=== PATIENT | female | born 1940 | race Caucasian/White ===

== ENCOUNTER 2016-07-16 17:39 | Emergency (ER) | payer OTHER, MEDICARE ==
[~2016-07-16] VITALS: Ht 157.5 cm; Wt 37.2 kg
[~2016-07-16 17:39] MED LIST: ACHYD1T PO; ALBU8.5H4 IH; ALPR0.2550 PO; ASP81TEC PO; ATRV10T PO; CA C1TAB26 PO; CYCL10TA9 PO; DEXL60CA5 PO; ESTR1TAB24 PO; FLUT12AE4 IH; HYDR-3583 PO; LANS15CA PO; LISI10TA PO; LVF500T PO; MELO-198 PO; OMEP-10 PO; OMEP20CA6 PO; OXYB5TAB9 PO; OXYC1TAB87 PO; PRX10T PO
--- OUTSIDE RECORDS SUMMARY | 2016-07-16 17:45 | XMS REPORT ---
Author Author FAVIO PALM Organization [employer] Address Unknown Phone Unavailable Care Team Providers Care Amf Mechanic Name Role Phone FAVIO PALM CP Unavailable Allergies, Adverse Reactions, Alerts Substance Reaction Event Type N.K.D.A. Info Not Available Non Drug Allergy Problems Problem Type Condition Code Onset Dates Condition Status Assessment Vitamin D deficiency E55.9 Active Assessment Pulmonary emphysema, unspecified emphysema type J43.9 Active Assessment Tobacco abuse Z72.0 Active Problem Routine health maintenance Z00.00 Active Problem Weight loss R63.4 Active Problem Vitamin D deficiency E55.9 Active Problem Tobacco abuse counseling Z71.6 Active Assessment Weight loss R63.4 Active Problem Pulmonary emphysema, unspecified emphysema type J43.9 Active Problem Tobacco abuse Z72.0 Active Medications Medication Code System Code Instructions Start Date End Date Status Dosage Cholecalciferol [facility] [id number]226 UNIT Orally once weekly January 22, 2016 1 capsule Zofran [facility] [address]-66 8 MG Orally PRN 1 tablet Estradiol [facility] [address]-09 1 MG Orally Once a day 1 tablet Megace ES [facility] [address]-54 625 MG/5ML Orally Once a day Feb 01, 2016 5 ml Procedures Procedure Coding System Code Date Office Visit, Est Pt., Level 3 CPT-4 36166 Feb 01, 2016 [facility] VISIT ESTABLISHED PATIENT CPT-4 G0467 Feb 01, 2016 Vital Signs Date/Time: Feb 01, 2016 Cardiac Monitoring Heart Rate 70 bpm Weight 70.0 lbs Height 5 ft 2 in in BMI 12.80 Index Blood Pressure Diastolic 66 mmHg Blood Pressure Systolic 96 mmHg Results No Known Results Summary Purpose eClinicalWorks Submission
[2016-07-16] MEDS ORDERED: morphine INJ 10 MG/ML 1ML (SYR OR VIAL) IM STA (18:52)
--- NOTE | 2016-07-16 19:01 | ED Upper Extremity ---
General Chief Complaint: Upper Extremity Stated Complaint: RT ARM PAIN Nursing Triage Note: WAS KNOCKED OVER BY A DOG AND LANDED ON R WRIST. C/O PAIN TO RFA. Nursing Sepsis Screen: No Definite Risk Source: patient Exam Limitations: no limitations History of Present Illness Time seen by provider: 19:01 Initial Comments 76 yo female patient presents to the emergency department complaints of right wrist pain and right forearm pain. Patient states she was knocked over at work by a dog. Reports falling on an outstretched right hand. Patient is right hand dominant. Denies hitting her head or loss of consciousness. Patient states she does take an 81 mg baby aspirin daily. Location Injury Occurred: work Onset: this afternoon Pain/Injury Location: right forearm, right wrist Method of Injury: fell Modifying Factors: Improves With Immobilization, Worse With Movement Allergies and Home Medications Allergies Coded Allergies: No Known Drug Allergies (Unverified , 03/27/10) Home Medications Albuterol Sulfate 8.5 Gm Hfa.aer.ad 2 PUFF IH NEEDED (Reported) FOR LUNGS Alprazolam 0.25 Mg Tab.rapdis 0.5 EACH PO Q8H PRN PRN (Reported) Cyclobenzaprine Hcl 10 Mg Tablet 10 MG PO Q8HR (Reported) Estradiol 1 Mg Tablet 1 MG PO DAILY (Reported) Hydrocodone/Acetaminophen 1 Each Tablet #30 1 EACH PO Q4H PRN PRN PAIN Prescribed by: ZEFERINO CALDERON on 07/16/161951 Omeprazole 20 Mg Capsule.dr 20 MG PO DAILY (Reported) Constitutional: no symptoms reported Respiratory: no symptoms reported Cardiovascular: no symptoms reported Musculoskeletal: see HPINo back pain, joint pain (rt wrist/forearm) joint swelling (rt wrist)No neck pain Skin: change in color (ecchymosis rt wrist) lumps (rt wrist.) Psychiatric/Neurological: Denies Headache, Denies Numbness, Denies Paresthesia , Denies Seizure, Denies Tingling, Denies Weakness All Other Systems Reviewed Negative Unless Noted: Yes (Negative excepted noted.) Past Uphyhwc-Qgnapl-Kgdlkt Hx Patient Social History Alcohol Use: Denies Use Recreational Drug Use: No Smoking Status: Current Everyday Smoker Recent Foreign Travel: No Contact w/Someone Who Travel: No Recent Infectious Disease Expo: No Recent Hopitalizations: No Physical Abuse Screen: No Sexual Abuse: No Immunizations Up To Date Date of Pneumonia Vaccine: Apr 11, 2010 Date of Influenza Vaccine: Mar 30, 2013 Surgeries HX Surgeries: Yes (CATARACT) Surgeries: Bladder Surgery, Hysterectomy, Oophorectomy, Orthopedic Respiratory Hx Respiratory Disorders: Yes Respiratory Disorders: COPD Cardiovascular Hx Cardiac Disorders: No Neurological Hx Neurological Disorders: No Reproductive System Hx Reproductive Disorders: No Sexually Transmitted Disease: No Genitourinary Hx Genitourinary Disorders: No Gastrointestinal Hx Gastrointestinal Disorders: Yes Gastrointestinal Disorders: Gastroesophageal Reflux Musculoskeletal Hx Musculoskeletal Disorders: No Endocrine Hx Endocrine Disorders: No HEENT HX ENT Disorders: No Cancer Hx Cancer: No Psychosocial Hx Psychiatric Problems: Yes Behavioral Health Disorders: Anxiety Integumentary HX Skin/Integumentary Disorder: No Blood Transfusions Hx Blood Disorders: No Reviewed Nursing Assessment Reviewed/Agree w Nursing PMH: Yes Family Medical History Significant Family History: No Pertinent Family Hx Physical Exam Vital Signs Vital Sign - Last 12Hours 07/16/16 07/16/16 18:35 20:50 Temp 97.5 Pulse 100 Resp 18 B/P 151/65 Pulse Ox 97 Capillary Refill : Less Than 3 Seconds General Appearance: WD/WN no apparent distress Cardiovascular: normal peripheral pulses regular rate, rhythm no murmur Respiratory: lungs clear normal breath sounds no respiratory distress Shoulder: normal inspection non-tender no evidence of injury normal ROM Elbow/Forearm: normal inspection, no evidence of injury, normal ROM, Right, pain, soft tissue tenderness ((lateral rt mid-distal forearm).) Wrist: Yes asymmetry (rt wrist.), Yes bone tenderness (rt lateral wrist.), Yes ecchymosis, Yes limited ROM, Yes pain, Yes soft tissue tenderness, Yes swelling Hand: normal inspection, non-tender, no evidence of injury, normal ROM, Right Neurologic/Tendon: normal sensation normal motor functions normal tendon functions responds to pain no evidence tendon injury Neurologic/Psychiatric: digital asset manager II-XII nml as tested no motor/sensory deficits alert normal mood/affect oriented x 3 Skin: normal color warm/dry ecchymosis (rt lateral wrist.) Splinting and Joint Reduction : Location: right wrist Pre-Proc Neuro Vasc Exam: normal Post-Proc Neuro Vasc Exam: normal Arm Sling: Medium Hand-Made Type: orthoglass Splint Application: Short Arm Progress/Results/Core Measures Results/Orders My Orders Medications Given in ED Vital Signs/I&O Blood Pressure Mean: 93 Diagnostic Imaging Diagonstic Imaging: CT Plain Films/CT/US/NM/MRI: head Comments FINDINGS: There is diffuse cortical atrophy. Ventricles are not dilated. There is no intracranial hemorrhage. There is no extra-axial fluid collections. No mass effect. Basal cisterns are clear. Orbital contents are normal. Mastoid air cells are well-aerated. No calvarial fractures. IMPRESSION: Diffuse cortical atrophy with no acute intracranial abnormalities. Dictated on workstation # [id number] Reviewed: Reviewed by Me (radiology report reviewed by me) Diagonstic Imaging: Xray Plain Films/CT/US/NM/MRI: forearm Comments FINDINGS: AP and lateral views were obtained. There is a nondisplaced fracture extending transversely through the distal radial diaphysis. There is also some irregularity of the distal ulna. I suspect that this is long-standing in nature however. No other fracture or acute bony abnormality is noted. There is moderate degenerative disease involving the radiocarpal joint and there is severe degenerative disease involving the articulation of the navicular bone and the multangular bones. The elbow joint is fairly well-maintained. The soft tissues are unremarkable. IMPRESSION: There is a transverse essentially nondisplaced fracture of the distal radial diaphysis. No other acute bony abnormality is noted. Dictated by: Dictated on workstation # [id number] Reviewed: Reviewed by Me (radiology report reviewed by me) Diagonstic Imaging: Xray Plain Films/CT/US/NM/MRI: other (rt shoulder) Comments FINDINGS: There are surgical anchors noted in the humeral head along the tuberosity. There is also a small curvilinear wire type foreign body overlying the metaphyseal portion soft tissues of the humerus. There is cephalad migration of the humeral head abutting the acromion consistent with chronic rotator cuff tear. AC joint in good alignment with moderate degenerative changes. There are no fractures. IMPRESSION: Findings are consistent with chronic rotator cuff tear. Also changes from a previous surgical repair noted as described. Dictated by: Dictated on workstation # [id number] Reviewed: Reviewed by Me (radiology report reviewed by me) Departure Communication Progress Notes Diagnostic findings discussed with the patient. Patient placed in a short-arm splint and sling. Proceed with discharge to home with follow-up as an outpatient with Dr. Mcdonald. Return precautions were discussed with the patient. Patient voices understanding and agrees with the treatment plan. Impression Impression: Primary Impression: Fracture of radius Additional Impression: Fall Qualified Code: W19.XXXA - Unspecified fall, initial encounter Disposition: HOME, SELF-CARE Condition: Improved Departure-Patient Inst. Decision time for Depature: 20:03 Referrals: [facility] (PCP/Family) Primary Care Physician CORETTA MCDONALD MD Patient Instructions: Wrist Fracture (DC) Add. Discharge Instructions: All discharge instructions reviewed with patient and/or family. Voiced understanding. Medications as instructed. No ibuprofen or Aleve. Elevate the right wrist on pillows. Ice pack for 20 minute intervals as needed for pain. Keep the splint clean and dry. Follow-up with Dr. Dr. Mcdonald as an outpatient for recheck in the next 7 days. All his office tomorrow morning for appointment time. Return to the emergency department for worsened pain, numbness, weakness, discoloration, or any other concerns. Scripts Hydrocodone/Acetaminophen (Hydrocodon -Acetaminophen 5-325)1 Each Tablet1 Each PO Q4H PRN PAIN #30 TAB Ref 0 Prov:ZEFERINO CALDERON 07/16/16 ZEFERINO CALDERON Jul 16, 2016 19:01
--- NOTE | 2016-07-16 19:19 | Diagnostic Imaging Report ---
PROCEDURE: CT head without contrast. TECHNIQUE: Multiple contiguous axial images were obtained through the brain without the use of intravenous contrast. INDICATION: Knocked down by a dog. FINDINGS: There is diffuse cortical atrophy. Ventricles are not dilated. There is no intracranial hemorrhage. There is no extra-axial fluid collections. No mass effect. Basal cisterns are clear. Orbital contents are normal. Mastoid air cells are well-aerated. No calvarial fractures. IMPRESSION: Diffuse cortical atrophy with no acute intracranial abnormalities. Dictated by: Dictated on workstation # [id number]
--- NOTE | 2016-07-16 19:33 | Diagnostic Imaging Report ---
INDICATION: Fall. Right shoulder pain. FINDINGS: There are surgical anchors noted in the humeral head along the tuberosity. There is also a small curvilinear wire type foreign body overlying the metaphyseal portion soft tissues of the humerus. There is cephalad migration of the humeral head abutting the acromion consistent with chronic rotator cuff tear. AC joint in good alignment with moderate degenerative changes. There are no fractures. IMPRESSION: Findings are consistent with chronic rotator cuff tear. Also changes from a previous surgical repair noted as described. Dictated by: Dictated on workstation # [id number]
--- NOTE | 2016-07-16 19:38 | Diagnostic Imaging Report ---
EXAM: Right forearm at 7:29 p.m. INDICATION: Fell, arm pain. FINDINGS: AP and lateral views were obtained. There is a nondisplaced fracture extending transversely through the distal radial diaphysis. There is also some irregularity of the distal ulna. I suspect that this is long-standing in nature however. No other fracture or acute bony abnormality is noted. There is moderate degenerative disease involving the radiocarpal joint and there is severe degenerative disease involving the articulation of the navicular bone and the multangular bones. The elbow joint is fairly well-maintained. The soft tissues are unremarkable. IMPRESSION: There is a transverse essentially nondisplaced fracture of the distal radial diaphysis. No other acute bony abnormality is noted. Dictated by: Dictated on workstation # [id number]
[2016-07-16] MEDS ORDERED: HYDR-3812 PO (19:52)
[2016-07-16] MEDS ORDERED: HYDROcodone/APAP 5 MG/325 MG (LORTAB) TAB PO ONE (20:00)
[2016-07-16 20:50] VITALS: BP 141/75
== END 2016-07-16 20:50 | disposition home or self-care (01) ==
LOC: EDUNIT# 17:39 → ER 17:42
DX: S52.501A Unspecified fracture of the lower end of right radius, initial encounter for closed fracture (principal); S49.91XA Unspecified injury of right shoulder and upper arm, initial encounter; M19.041 Primary osteoarthritis, right hand; J44.9 Chronic obstructive pulmonary disease, unspecified; F17.210 Nicotine dependence, cigarettes, uncomplicated; W54.1XXA Struck by dog, initial encounter; Y99.8 Other external cause status
CPT/HCPCS: 29105; 70450; 73030; 73090; 96372

== ENCOUNTER 2017-02-12 12:20 | Emergency (ER) | payer MEDICARE, OTHER ==
[~2017-02-12] VITALS: Ht 157.5 cm; Wt 29.9 kg
[~2017-02-12 12:20] MED LIST changes: +HYDR-3812 PO
[2017-02-12] MEDS ORDERED: RT-ALBUTEROL/IPRATROPIUM 3 ML (DUONEB) VIAL INH ONE (12:45)
--- NOTE | 2017-02-12 12:48 | ED Dyspnea ---
General Stated Complaint: SOLANGE,BEBA Source of Information: Patient Exam Limitations: No Limitations History of Present Illness Time Seen by Provider: 12:46 Initial Comments To ER with a roughly 1 week history of general weakness associated with shortness of breath. She has a chronic cough that is intermittently productive and this is usual for her. There is been no change in the characteristics of the cough. No fevers or chills. She was on antibiotics and steroids for one week about 4 weeks ago so she finished these about 3 weeks ago. She continues to smoke one pack of cigarettes per day. She has a history of emphysema. Severity: Moderate Associated Symptoms: Cough Allergies and Home Medications Allergies Coded Allergies: No Known Drug Allergies (Unverified , 03/27/10) Home Medications Albuterol Sulfate 8.5 Gm Hfa.aer.ad, 2 PUFF IH NEEDED, (Reported) FOR LUNGS Dronabinol 2.5 Mg Capsule, 2.5 MG PO DAILY, (Reported) Constitutional: see HPI EENTM: see HPI Respiratory: see HPI, cough Cardiovascular: no symptoms reported Genitourinary: no symptoms reported Musculoskeletal: no symptoms reported Skin: no symptoms reported Psychiatric/Neurological: No Symptoms Reported Endocrine: No Symptoms Reported Past Psnxipp-Qfbrxy-Lcmhef Hx Patient Social History Recent Hopitalizations: No Immunizations Up To Date Date of Pneumonia Vaccine: Apr 11, 2010 Date of Influenza Vaccine: Mar 30, 2013 Surgeries HX Surgeries: Yes (CATARACT) Surgeries: Bladder Surgery, Hysterectomy, Oophorectomy, Orthopedic Respiratory Hx Respiratory Disorders: Yes Respiratory Disorders: COPD Cardiovascular Hx Cardiac Disorders: No Neurological Hx Neurological Disorders: No Reproductive System Hx Reproductive Disorders: No Sexually Transmitted Disease: No Genitourinary Hx Genitourinary Disorders: No Gastrointestinal Hx Gastrointestinal Disorders: Yes Gastrointestinal Disorders: Gastroesophageal Reflux Musculoskeletal Hx Musculoskeletal Disorders: No Endocrine Hx Endocrine Disorders: No HEENT HX ENT Disorders: No Cancer Hx Cancer: No Psychosocial Hx Psychiatric Problems: Yes Behavioral Health Disorders: Anxiety Integumentary HX Skin/Integumentary Disorder: No Blood Transfusions Hx Blood Disorders: No Family Medical History Significant Family History: No Pertinent Family Hx Physical Exam Vital Signs Vital Sign - Last 12Hours 02/12/17 12:20 Temp 98.1 Pulse 66 Resp 32 B/P (MAP) 142/81 Pulse Ox 100 O2 Delivery Room Air Capillary Refill : General Appearance: No Apparent Distress, WD/WN, Thin HEENT: PERRL/EOMI, TMs Normal Respiratory: No Accessory Muscle Use, No Respiratory Distress, Decreased Breath Sounds Cardiovascular: Regular Rate, Rhythm Gastrointestinal: Normal Bowel Sounds, Non Tender, Soft Extremity: Normal Capillary Refill, Normal Inspection Neurologic/Psychiatric: Alert, Oriented x3, No Motor/Sensory Deficits Skin: Normal Color, Warm/Dry Progress/Results/Core Measures Results/Orders Lab Results Laboratory Tests Test 02/12/17 12:29 Range/Units White Blood Count 6.7 4.3-11.0 10^3/uL Red Blood Count 4.35 4.35-5.85 10^6/uL Hemoglobin 12.9 11.5-16.0 G/DL Hematocrit 39 35-52 % Mean Corpuscular Volume 90 80-99 FL Mean Corpuscular Hemoglobin 30 25-34 PG Mean Corpuscular Hemoglobin Concent 33 32-36 G/DL Red Cell Distribution Width 13.9 10.0-14.5 % Platelet Count 361 130-400 10^3/uL Mean Platelet Volume 9.4 7.4-10.4 FL Neutrophils (%) (Auto) 62 42-75 % Lymphocytes (%) (Auto) 21 12-44 % Monocytes (%) (Auto) 9 0-12 % Eosinophils (%) (Auto) 7 0-10 % Basophils (%) (Auto) 1 0-10 % Neutrophils # (Auto) 4.2 1.8-7.8 X 10^3 Lymphocytes # (Auto) 1.4 1.0-4.0 X 10^3 Monocytes # (Auto) 0.6 0.0-1.0 X 10^3 Eosinophils # (Auto) 0.5 H 0.0-0.3 10^3/uL Basophils # (Auto) 0.0 0.0-0.1 10^3/uL Sodium Level 140 135-145 MMOL/L Potassium Level 3.7 3.6-5.0 MMOL/L Chloride Level 103 98-107 MMOL/L Carbon Dioxide Level 26 21-32 MMOL/L Anion Gap 11 5-14 MMOL/L Blood Urea Nitrogen 14 7-18 MG/DL Creatinine 0.62 0.60-1.30 MG/DL Estimat Glomerular Filtration Rate > 60 BUN/Creatinine Ratio 23 Glucose Level 87 70-105 MG/DL Calcium Level 9.4 8.5-10.1 MG/DL Magnesium Level 2.0 1.8-2.4 MG/DL Total Bilirubin 0.3 0.1-1.0 MG/DL Aspartate Amino Transf (AST/SGOT) 17 5-34 U/L Alanine Aminotransferase (ALT/SGPT) 12 0-55 U/L Alkaline Phosphatase 95 40-136 U/L Troponin I < 0.30 <0.30 NG/ML B-Type Natriuretic Peptide 109.0 H <100.0 PG/ML Total Protein 6.9 6.4-8.2 GM/DL Albumin 3.6 3.2-4.5 GM/DL My Orders Orders - BILL LUTHER APRN Cbc With Automated Diff (02/12/17 12:42) Comprehensive Metabolic Panel (02/12/17 12:42) Magnesium (02/12/17 12:42) Troponin I (02/12/17 12:42) BNP (02/12/17 12:42) Ekg Tracing (02/12/17 12:42) Chest Pa/Lat (2 View) (02/12/17 12:42) Albuterol/Ipra Inhalation Soln (Duoneb I (02/12/17 12:45) Svn Sm Volume Nebulizer Rt-Rfs (02/12/17 12:42) Medications Given in ED Current Medications Medications Dose Ordered Sig/Dontrell Route Start Time Stop Time Status Last Admin Dose Admin Albuterol/ Ipratropium 3 ml ONCE ONCE INH 02/12/17 12:45 02/12/17 12:46 DC 02/12/17 12:57 3 ML Vital Signs/I&O Vital Sign - Last 12Hours 02/12/17 02/12/17 12:20 12:54 Temp 98.1 Pulse 66 Resp 32 B/P (MAP) 142/81 Pulse Ox 100 98 O2 Delivery Room Air Room Air Diagnostic Imaging Diagonstic Imaging: Xray Plain Films/CT/US/NM/MRI: chest Comments NAME: OZZIE MICHAEL [facility] REC#: [id number] PT STATUS: REG ER : 1940 PHYSICIAN: BILL LUTHER APRN ADMIT DATE: 02/12/17/ER Draft Date of Exam:02/12/17 CHEST PA/LAT (2 VIEW) Clinical indication: Patient with shortness breath, weakness x2 weeks. Patient's history of COPD. Exam: Chest x-ray PA and lateral views. Comparisons: Chest x-ray dated 12/14/2013. Findings: Lungs/pleura: There are slightly hyperinflated lungs, increased retrosternal clear space, and flattened hemidiaphragms which can be seen with COPD changes. There is no interval lung infiltrate. There is no pneumothorax. There is no pleural effusion. Mediastinum: Unremarkable. Pulmonary vasculature: Unremarkable. Heart: Unremarkable. Bones/extrathoracic soft tissue: Again seen levoscoliosis of the lower thoracic spine and dextroscoliosis of the upper thoracic spine with multilevel vertebral body spurs. Impression: 1: Stable COPD lung changes. Otherwise, there is no interval radiographic evidence of acute cardiopulmonary process. 2: Scoliosis of the thoracolumbar spine. Dictated on workstation # [id number] Dict: 02/12/17 1317 Trans: 02/12/17 1334 [facility] [employer] [facility] [id number] Interpreted by: MARLENA SCOTT MD Electronically signed by: Departure Impression Impression: Primary Impression: COPD exacerbation Disposition: 01 HOME, SELF-CARE Condition: Stable Departure-Patient Inst. Decision time for Depature: 13:37 Referrals: [facility] (PCP/Family) Primary Care Physician Patient Instructions: COPD Including Emphysema (DC) Add. Discharge Instructions: 1. Return to ER for any concerns 2. See her doctor later this week for recheck Scripts Prednisone (Prednisone) 20 Mg Tab 40 MG PO DAILY, #6 TAB Prov: BILL LUTHER APRN 02/12/17 BILL LUTHER APRN Feb 12, 2017 12:48
[2017-02-12 12:50] LABS: BASOPHILS % (AUTO) 1 % (0-10); EOSINOPHILS # (AUTO) 0.5 10^3/uL (0.0-0.3); EOSINOPHILS % (AUTO) 7 % (0-10); LYMPHOCYTES # (AUTO) 1.4 X 10^3 (1.0-4.0); LYMPHOCYTES % (AUTO) 21 % (12-44); MEAN CORPUSCULAR HEMOGLOBIN 30 PG (25-34); MEAN CORPUSCULAR HGB CONC 33 G/DL (32-36); MEAN CORPUSCULAR VOLUME 90 FL (80-99); MEAN PLATELET VOLUME 9.4 FL (7.4-10.4); MONOCYTES # (AUTO) 0.6 X 10^3 (0.0-1.0); MONOCYTES % (AUTO) 9 % (0-12); NEUTROPHILS # (AUTO) 4.2 X 10^3 (1.8-7.8); NEUTROPHILS % (AUTO) 62 % (42-75); PLATELET COUNT 361 10^3/uL (130-400); RED BLOOD COUNT 4.35 10^6/uL (4.35-5.85); RED CELL DISTRIBUTION WIDTH 13.9 % (10.0-14.5); WHITE BLOOD COUNT 6.7 10^3/uL (4.3-11.0)
[2017-02-12] MEDS ORDERED: DRON2.5C11 PO (12:53)
[2017-02-12 13:04] LABS: ALANINE AMINOTRANSFERASE 12 U/L (0-55); ALBUMIN 3.6 GM/DL (3.2-4.5); ANION GAP 11 MMOL/L (5-14); ASPARTATE AMINO TRANSFERASE 17 U/L (5-34); BILIRUBIN,TOTAL 0.3 MG/DL (0.1-1.0); BLOOD UREA NITROGEN 14 MG/DL (7-18); BUN/CREATININE RATIO 23; CALCIUM 9.4 MG/DL (8.5-10.1); CARBON DIOXIDE 26 MMOL/L (21-32); CHLORIDE 103 MMOL/L (98-107); CREATININE SERUM 0.62 MG/DL (0.60-1.30); GFR ESTIMATED > 60; GLUCOSE 87 MG/DL (70-105); POTASSIUM 3.7 MMOL/L (3.6-5.0); SODIUM 140 MMOL/L (135-145); TOTAL PROTEIN 6.9 GM/DL (6.4-8.2)
[2017-02-12 13:11] LABS: TROPONIN I < 0.30 NG/ML (<0.30)
--- NOTE | 2017-02-12 13:34 | Diagnostic Imaging Report ---
Clinical indication: Patient with shortness breath, weakness x2 weeks. Patient's history of COPD. Exam: Chest x-ray PA and lateral views. Comparisons: Chest x-ray dated 12/14/2013. Findings: Lungs/pleura: There are slightly hyperinflated lungs, increased retrosternal clear space, and flattened hemidiaphragms which can be seen with COPD changes. There is no interval lung infiltrate. There is no pneumothorax. There is no pleural effusion. Mediastinum: Unremarkable. Pulmonary vasculature: Unremarkable. Heart: Unremarkable. Bones/extrathoracic soft tissue: Again seen levoscoliosis of the lower thoracic spine and dextroscoliosis of the upper thoracic spine with multilevel vertebral body spurs. Impression: 1: Stable COPD lung changes. Otherwise, there is no interval radiographic evidence of acute cardiopulmonary process. 2: Scoliosis of the thoracolumbar spine. Dictated by: Dictated on workstation # [id number]
[2017-02-12] MEDS ORDERED: PRD20T PO (13:38)
[2017-02-12] MEDS ORDERED: ONDA8TAB9 PO (13:49)
[2017-02-12 14:03] VITALS: BP 142/81
--- OUTSIDE RECORDS SUMMARY | 2017-02-13 11:02 | XMS REPORT ---
Author Author FAVIO PALM Organization [employer] Address Unknown Phone Unavailable Care Team Providers Care Senior Adults Director Name Role Phone FAVIO PALM CP Unavailable [...] Start Date End Date Status Dosage Cholecalciferol [facility] [id number]56 UNIT Orally once weekly January 22, 2016 1 capsule Zofran [facility] [address]-06 8 MG Orally PRN 1 tablet Estradiol [facility] [address]-64 1 MG Orally Once a day 1 tablet Megace ES [facility] [address]-30 625 MG/5ML Orally Once a day Feb 01, 2016 5 ml Procedures Procedure Coding System Code Date Office Visit, Est Pt., Level 3 CPT-4 38930 Feb 01, 2016 [facility] VISIT ESTABLISHED PATIENT CPT-4 G0467 Feb 01, 2016 Vital Signs Date/Time: Feb 01, 2016 Cardiac Monitoring Heart Rate 70 bpm Weight 70.0 lbs Height 5 ft 2 in in BMI 12.80 Index Blood Pressure Diastolic 66 mmHg Blood Pressure Systolic 96 mmHg Results No Known Results Summary Purpose [employer] Submission
--- OUTSIDE RECORDS SUMMARY | 2017-02-13 11:02 | XMS REPORT ---
Author Author FAVIO PALM Organization [employer] Address Unknown Phone Unavailable Care Team Providers Care Inspector Missile Name Role Phone FAVIO PALM CP Unavailable Allergies No Known Allergies Problems Problem Type Condition Code Onset Dates Condition Status Problem Weight loss R63.4 Active Problem Pulmonary emphysema, unspecified emphysema type J43.9 Active Problem Routine health maintenance Z00.00 Active Problem Tobacco abuse Z72.0 Active Problem Tobacco abuse counseling Z71.6 Active Medications Medication Code System Code Instructions Start Date End Date Status Dosage Cholecalciferol [facility] [id number] UNIT Orally once weekly January 22, 2016 1 capsule Results No Known Results Summary Purpose [employer]Clinical[employer] Submission
--- OUTSIDE RECORDS SUMMARY | 2017-02-13 11:03 | XMS REPORT ---
Author Author PALMFAVIO Leger Organization [facility] Address [address] [place] [address] Care Team Providers Care Mine Technician Name Role Phone PALMFAVIO Leger Unavailable PROBLEMS Type Condition ICD9-CM Code AIK54-FA Code Onset Dates Condition Status SNOMED Code Assessment Weight loss R63.4 Feb, Active 39436257 Problem Vitamin D deficiency E55.9 Active 07079046 Problem Routine health maintenance Z00.00 Active 457697749 Problem Tobacco abuse Z72.0 Active 797214847 Problem Tobacco abuse counseling Z71.6 Active 950425346 Problem Weight loss R63.4 Active 722036241 Problem Pulmonary emphysema, unspecified emphysema type J43.9 Active 08618741 ALLERGIES Substance Reaction Event Type Date Status N.K.D.A. Unknown Non Drug Allergy Feb, Unknown SOCIAL HISTORY No smoking Hx information available PLAN OF CARE VITAL SIGNS Height 5 ft 2 in in 2016-03-07 Weight 82.0 lbs 2016-03-07 Heart Rate 72 bpm 2016-03-07 Respiratory Rate 20 2016-03-07 BMI 15.00 kg/m2 2016-03-07 Blood pressure systolic 102 mmHg 2016-03-07 Blood pressure diastolic 70 mmHg 2016-03-07 MEDICATIONS Medication Instructions Dosage Frequency Start Date End Date Duration Status Cholecalciferol 67592 UNIT Orally once weekly 1 capsule Dec, Active Remeron 15 MG Orally Once a day at bedtime 1/2 tablet Feb, 30 day(s) Active Cholecalciferol 5000 UNIT Orally Once a day beginning on 03/17/16 1 capsule Feb, Active Estradiol 1 MG Orally Once a day 1 tablet 24h Active Zofran 8 MG Orally PRN 1 tablet Active RESULTS No Results PROCEDURES Procedure Date Ordered Related Diagnosis Body Site [facility] VISIT ESTABLISHED PATIENT Mar 07, 2016 Office Visit, Est Pt., Level 3 Mar 07, 2016 IMMUNIZATIONS No Known Immunizations
--- OUTSIDE RECORDS SUMMARY | 2017-02-13 11:03 | XMS REPORT ---
Author Author FAVIO PALM Organization [employer] Address Unknown Phone Unavailable Care Team Providers Care Oncologist Name Role Phone FAVIO PALM CP Unavailable Allergies, Adverse Reactions, Alerts Substance Reaction Event Type N.K.D.A. Info Not Available Non Drug Allergy Problems Problem Type Condition Code Onset Dates Condition Status Assessment Vitamin D deficiency E55.9 Active Problem Tobacco abuse counseling Z71.6 Active Assessment Pulmonary emphysema, unspecified emphysema type J43.9 Active Assessment Underweight R63.6 Active Assessment Menopausal symptom N95.1 Active Problem Underweight R63.6 Active Problem Vitamin D deficiency E55.9 Active Problem Menopausal symptom N95.1 Active Problem Pulmonary emphysema, unspecified emphysema type J43.9 Active Problem Tobacco abuse Z72.0 Active Problem Routine health maintenance Z00.00 Active Problem Weight loss R63.4 Active Medications Medication Code System Code Instructions Start Date End Date Status Dosage Remeron [facility] [address]-25 15 MG Orally Once a day at bedtime Mar 07, 2016 1/2 tablet Zofran [facility] [address]-82 8 MG Orally PRN 1 tablet Cholecalciferol [facility] 70779-[address]42 5000 UNIT Orally Once a day beginning on Mar 07, 2016 1 capsule Estradiol [facility] [address]-21 1 MG Orally Once a day 1 tablet Procedures Procedure Coding System Code Date Office Visit, Est Pt., Level 3 CPT-4 96919 Apr 04, 2016 [facility] VISIT ESTABLISHED PATIENT CPT-4 G0467 Apr 04, 2016 Vital Signs Date/Time: Apr 04, 2016 Cardiac Monitoring Heart Rate 80 bpm Weight 89 lbs Height 5 ft 2 in in BMI 16.28 Index Blood Pressure Diastolic 80 mmHg Blood Pressure Systolic 122 mmHg Results No Known Results Summary Purpose [employer] Submission
--- OUTSIDE RECORDS SUMMARY | 2017-02-13 11:03 | XMS REPORT ---
Author Author FAVIO PALM Organization [employer] Address Unknown Phone Unavailable Care Team Providers Care Costume Technician Name Role Phone FAVIO PALM CP Unavailable Allergies, Adverse Reactions, Alerts Substance Reaction Event Type N.K.D.A. Info Not Available Non Drug Allergy Problems Problem Type Condition Code Onset Dates Condition Status Assessment Tobacco abuse counseling Z71.6 Active Assessment Pulmonary emphysema, unspecified emphysema type J43.9 Active Assessment Tobacco abuse Z72.0 Active Assessment Cachectic R64 Active Problem Weight loss R63.4 Active Problem Pulmonary emphysema, unspecified emphysema type J43.9 Active Problem Routine health maintenance Z00.00 Active Assessment Routine health maintenance Z00.00 Active Assessment Weight loss R63.4 Active Problem Tobacco abuse Z72.0 Active Problem Tobacco abuse counseling Z71.6 Active Medications Medication Code System Code Instructions Start Date End Date Status Dosage Zofran [facility] [address]-43 8 MG Orally PRN 1 tablet Estradiol [facility] [address]-92 1 MG Orally Once a day 1 tablet Procedures Procedure Coding System Code Date [facility] VISIT NEW PATIENT CPT-4 G0466 January 18, 2016 Office Visit, New Pt., Level 4 CPT-4 24713 January 18, 2016 CHEST X-RAY CPT-4 59431 January 18, 2016 Vital Signs Date/Time: January 18, 2016 Cardiac Monitoring Heart Rate 66 bpm Weight 68.7 lbs Height 5 ft 2 in in Blood Pressure Diastolic 70 mmHg Blood Pressure Systolic 98 mmHg Results No Known Results Summary Purpose [employer] Submission
== END 2017-02-12 14:03 | disposition home or self-care (01) ==
LOC: EDUNIT# 12:20 → ER 12:23
DX: J44.1 Chronic obstructive pulmonary disease with (acute) exacerbation (principal); J43.9 Emphysema, unspecified; K21.9 Gastro-esophageal reflux disease without esophagitis; F41.9 Anxiety disorder, unspecified; Z90.710 Acquired absence of both cervix and uterus
CPT/HCPCS: 36415; 71020; 80053; 83735; 83880; 84484; 85025; 94640

== ENCOUNTER → 2017-03-31 | Outpatient (CLI) | payer MEDICARE ==
[~2017-03-31] MED LIST changes: +CATHETER FLUSH 10 ML SYR IV PRN; +DRON2.5C11 PO; +IOHEXOL 350 MG/ML 100 ML (OMNIPAQUE 350) VIAL IV ONE; +NS 100 ML (IVPB) BAG IV ONE; +ONDA8TAB9 PO; +PRD20T PO; +RT-ALBUTEROL SULF 2.5 MG/3 ML PRE-MIX VIAL IH ONE
[2017-03-31 12:48] LABS: BLOOD UREA NITROGEN 10 MG/DL (7-18); BUN/CREATININE RATIO 15; CREATININE SERUM 0.68 MG/DL (0.60-1.30); GFR ESTIMATED > 60
--- NOTE | 2017-03-31 16:48 | Diagnostic Imaging Report ---
PROCEDURE: CT chest with contrast only. TECHNIQUE: Multiple contiguous axial images were obtained through the chest after administration of intravenous contrast. INDICATION: Shortness of air with weight loss, history of smoking. COMPARISON: Exam compared 07/12/2011. FINDINGS: Bullous emphysematous changes remain most pronounced at the upper lobes and pulmonary apices where there is at least mild interval progression of the disease severity again noted very advanced. There is new partial atelectasis of the posterior medial left lower lobe. There is some chronic calcified benign lymph node granulomatous residua. No suspicious adenopathy. No effusion or pneumothorax. The aorta is nonaneurysmal. There are no pulmonary arterial filling defects or PE. The visualized upper abdomen unremarkable. IMPRESSION: Progressive severe bullous emphysema. Partial atelectasis of the left lower lobe posteromedially. No thoracic adenopathy, effusion or pneumothorax. Dictated by: Dictated on workstation # [id number]
== END ==
LOC: RAD 11:13
PROVIDERS: ATTEND Nurse Practitioner Family
DX: J43.9 Emphysema, unspecified (principal); J98.11 Atelectasis; Z87.891 Personal history of nicotine dependence; R53.83 Other fatigue; R63.4 Abnormal weight loss
CPT/HCPCS: 36415; 71260; 82565; 84520; 94060; 94640; 94726; 94729

== ENCOUNTER → 2017-10-06 | Outpatient (CLI) | payer MEDICARE ==
[~2017-10-06] MED LIST changes: +ACHD5005 PO; -HYDR-3812 PO; -RT-ALBUTEROL SULF 2.5 MG/3 ML PRE-MIX VIAL IH ONE
[2017-10-06 13:23] LABS: BUN/CREATININE RATIO 18; CREATININE SERUM 0.68 MG/DL (0.60-1.30); GFR ESTIMATED > 60
--- NOTE | 2017-10-06 14:08 | Diagnostic Imaging Report ---
PROCEDURE: CT chest with contrast only. TECHNIQUE: Multiple contiguous axial images were obtained through the chest after administration of intravenous contrast. INDICATION: COPD and cough. Comparison is made with prior CT chest from 03/31/2017. FINDINGS: No axillary, hilar or mediastinal lymphadenopathy is detected. No pericardial or pleural fluid is identified. Severe bullous emphysematous changes are again noted, most pronounced in the upper lobes bilaterally. The central airways are patent. Previously noted collapse of the posteromedial left lower lobe on prior exam has resolved. No new parenchymal abnormality is seen. No mass is detected. Upper abdomen is unremarkable. IMPRESSION: 1. Severe COPD. 2. Resolution of previously noted posteromedial left lower lobe atelectasis when compared with exam from 03/31/2017. Dictated by: Dictated on workstation # [id number]
== END ==
LOC: RAD 12:44
PROVIDERS: ATTEND Nurse Practitioner Family
DX: J98.11 Atelectasis (principal); J44.9 Chronic obstructive pulmonary disease, unspecified; Z72.0 Tobacco use
CPT/HCPCS: 36415; 71260; 82565; 84520

== ENCOUNTER → 2018-12-22 | Outpatient (CLI) | payer MEDICARE ==
[~2018-12-22] MED LIST changes: -CATHETER FLUSH 10 ML SYR IV PRN; -IOHEXOL 350 MG/ML 100 ML (OMNIPAQUE 350) VIAL IV ONE; -NS 100 ML (IVPB) BAG IV ONE
--- NOTE | 2018-12-22 13:22 | Diagnostic Imaging Report ---
INDICATION: Left lower lobe lung nodule. TECHNIQUE: Serum blood glucose level at the time of ejection is 98 mg/dL. The patient was administered 13.2 mCi of F-18 FDG intravenously, and PET imaging was performed from the top of the skull to mid thighs. Noncontrast CT was also performed for attenuation correction and anatomic correlation. COMPARISON: No prior PET study is available for comparison. Comparison is made with CT chest from 12/18/2018. FINDINGS: There is symmetric activity throughout the brain. Soft tissues of the neck are unremarkable. No suspicious mediastinal or hilar hypermetabolism is seen. No pulmonary parenchymal hypermetabolism is identified. In particular, no abnormal hypermetabolism in the region of the nodular linear density in the left lower lobe described on prior CT. Abdomen and pelvis evaluation shows physiologic activity within the GI and tracts. There are several foci of uptake in the upper abdomen in the region of the vivien hepatis and anterior to the aorta adjacent to the pancreas. This is indeterminate but could represent hypermetabolic lymph nodes. SUV max is approximately 4. No other suspicious abnormality is seen. IMPRESSION: 1. No suspicious hypermetabolism within the chest. Area of nodular density in the left lower lobe is without FDG avidity. 2. Several foci of mildly increased uptake in the upper abdomen in the region of the vivien hepatis, which may represent uptake within lymph nodes. Conventional CT abdomen and pelvis with and without IV contrast is recommended for further evaluation. Dictated by: Dictated on workstation # [id number]
== END ==
LOC: RAD 07:56
PROVIDERS: ATTEND Nurse Practitioner Family
DX: J98.4 Other disorders of lung (principal); J44.9 Chronic obstructive pulmonary disease, unspecified; R63.4 Abnormal weight loss; R91.1 Solitary pulmonary nodule; Z72.0 Tobacco use

== ENCOUNTER → 2019-01-05 | Outpatient (CLI) | payer MEDICARE ==
[~2019-01-05] MED LIST changes: +HOLD METFORMIN - RECEIVED CONTRAST 20 ML VIAL IV SCH; +IOHEXOL 350 MG/ML 100 ML (OMNIPAQUE 350) VIAL IV ONE; +NS 100 ML (IVPB) BAG IV ONE
--- NOTE | 2019-01-05 10:55 | Diagnostic Imaging Report ---
PROCEDURE: CT abdomen and pelvis with and without contrast. TECHNIQUE: Precontrast acquisitions were acquired through the abdomen and pelvis. Multiple contiguous axial images were obtained through the abdomen and pelvis after the administration of intravenous contrast. Auto Exposure Controls were utilized during the CT exam to meet ALARA standards for radiation dose reduction. INDICATION: Abnormal PET scan with activity and possibly present in the vivien hepatis lymph nodes. Findings: Comparisons the CT dated 12/22/2018. Abnormal FDG uptake corresponds to vivien hepatis lymph nodes. The largest measures 10 mm (series 4, image 32). Another lymph node measures 9 mm (series 4, image 27). The final lymph node measures 7 mm (series 4, image 23). Limited views of the lower thorax reveal moderate to severe emphysema. The liver is normal without focal lesion. Gallbladder is normal. Portal vein is patent. Pancreas is normal. No pancreatic ductal dilation. Spleen and adrenal glands are normal. Kidneys enhance symmetrically without focal lesion. No hydronephrosis. Urinary bladder is normal. There are no dilated loops of large or small bowel. There is no abdominal or pelvic lymphadenopathy. There are no suspicious osseous lesions. There is moderate to severe scoliosis of the lumbar spine with dural ectasia in the sacrum. Impression: 1. Abnormal FDG uptake corresponds to 3 lymph nodes, the largest of which measures 10 mm in short axis. The CT appearance is not particularly abnormal. Dictated by: Dictated on workstation # [id number]
== END ==
LOC: RAD 09:21
PROVIDERS: ATTEND Nurse Practitioner Primary Care
DX: R93.2 Abnormal findings on diagnostic imaging of liver and biliary tract (principal)
CPT/HCPCS: 74178

== ENCOUNTER → 2019-02-12 | Outpatient (CLI) | payer MEDICARE ==
[~2019-02-12] MED LIST changes: -HOLD METFORMIN - RECEIVED CONTRAST 20 ML VIAL IV SCH; -IOHEXOL 350 MG/ML 100 ML (OMNIPAQUE 350) VIAL IV ONE; -NS 100 ML (IVPB) BAG IV ONE
--- NOTE | 2019-02-12 19:10 | Diagnostic Imaging Report ---
INDICATION: Routine screening. COMPARISON: Comparison is made with prior mammograms from 07/12/2011 and 03/01/2010. 2-D and 3-D bilateral screening mammography was performed. The current study was also evaluated with a Computer Aided Detection (CAD) system. 3-D tomosynthesis was also performed and reviewed. FINDINGS: Both breasts are heterogeneously dense, limiting the sensitivity of mammography. The overall parenchymal pattern is stable. The calcifications in the upper left breast are stable. No new mass or malignant-appearing microcalcifications are seen. Axillae are unremarkable. IMPRESSION: No mammographic features suspicious for malignancy are identified. ACR BI-RADS Category 2: Benign findings. Result letter will be mailed to the patient. Note: At least 10% of breast cancer is not imaged by mammography. Dictated by: Dictated on workstation # [id number]
== END ==
LOC: RAD 08:56
PROVIDERS: ATTEND Nurse Practitioner Primary Care
DX: Z12.31 Encounter for screening mammogram for malignant neoplasm of breast (principal)
CPT/HCPCS: 77067

== ENCOUNTER → 2019-03-16 | Outpatient (CLI) | payer MEDICARE ==
--- NOTE | 2019-03-16 11:55 | Diagnostic Imaging Report ---
INDICATION: 78-year-old asymptomatic postmenopausal female COMPARISON: 02/26/2007 FINDINGS: AP Spine L2-L4: [BMD (g/cm2): 0.908] [T-Score: -2.4] [Z-Score: 0.2] [BMD Previous: 0.991] [BMD % Change: -8.4] LT Hip Neck: [BMD (g/cm2): 0.729] [T-Score: -2.2] [Z-Score: 0.3] LT Hip Total: [BMD (g/cm2):0.600] [T-Score:-3.2] [Z-Score: -0.8] [BMD Previous: 0.876] [BMD % Change: -31.5] RT Hip Neck: [BMD (g/cm2):0.776] [T-Score:-1.9] [Z-Score:0.7] RT Hip Total: [BMD (g/cm2):0.599] [T-score:-3.2] [Z-Score:-0.8] [BMD Previous:0.899] [BMD % Change:-33.4] *Indicates significant change from prior examination based on 95% confidence level. World Health Organization criteria for BMD interpretation classify patients as Normal (T-score at or above -1.0), Osteopenic (T-score between -1.0 and -2.5) or Osteoporotic (T-score at or below -2.5). LIMITATIONS AND MODIFICATION: None. FRACTURE RISK (FRAX SCORE): Not applicable as patient meets criteria for osteoporosis. IMPRESSION: 1. Osteoporosis. 2. No significant change in bone mineral density since prior examination. 3. See below National Osteoporosis Foundation guidelines on when to potentially initiate pharmacologic therapy. Based on the National Osteoporosis Foundation Guidelines, pharmacologic treatment should be initiated in any of the following, unless clinical conditions suggest otherwise: * Any patient with prior fragility fracture of the hip or vertebrae. A spine fracture indicates 5X risk for subsequent spine fracture and 2X risk for subsequent hip fracture. * Osteoporosis (T-score <-2.5). * Postmenopausal women and men age 50 and older with low bone mass/osteopenia (T-score between -1.0 and -2.5) by DXA and 10-year major osteoporotic fracture greater than 20% or a 10-year probability of hip fracture greater than 3%. These fracture risks are supplied above in the FRAX score, if applicable. * Clinician judgement and/or patient preferences may indicate treatment for people with 10-year fracture probabilities above or below these levels. Dictated by: Dictated on workstation # [id number]
== END ==
LOC: RAD 08:14
PROVIDERS: ATTEND Nurse Practitioner Primary Care
DX: Z00.00 Encounter for general adult medical examination without abnormal findings (principal); M81.0 Age-related osteoporosis without current pathological fracture; N95.1 Menopausal and female climacteric states
CPT/HCPCS: 77080

== ENCOUNTER → 2019-04-08 | Outpatient (CLI) | payer MEDICARE ==
[~2019-04-08] MED LIST changes: +HOLD METFORMIN - RECEIVED CONTRAST 20 ML VIAL IV SCH
[2019-04-08 08:54] LABS: BUN/CREATININE RATIO 21; CREATININE SERUM 0.76 MG/DL (0.60-1.30); GFR ESTIMATED > 60
[2019-04-08] MEDS: IOHEXOL 350 MG/ML 100 ML (OMNIPAQUE 350) VIAL IV ONE (09:11)
[2019-04-08] MEDS: CATHETER FLUSH 10 ML SYR IV PRN (09:11)
[2019-04-08] MEDS: NS 100 ML (IVPB) BAG IV ONE (09:11)
--- NOTE | 2019-04-08 09:29 | Diagnostic Imaging Report ---
PROCEDURE: CT chest with contrast only. TECHNIQUE: Multiple contiguous axial images were obtained through the chest after administration of intravenous contrast. Auto Exposure Controls were utilized during the CT exam to meet ALARA standards for radiation dose reduction. INDICATION: Hypoxemia and 3 month followup. COMPARISON: 12/18/2018. FINDINGS: No axillary lymphadenopathy is detected. No mediastinal or hilar lymphadenopathy is identified. Calcified lymph nodes in the subcarinal region are noted, consistent with prior granulomatous exposure. No pericardial or pleural fluid is detected. Upper lobe predominant emphysematous changes are again noted. The band-like density in the left lower lobe is again seen. The area of nodularity along the linear density appears similar measuring 11 mm x 8 mm. No new parenchymal mass or infiltrate is seen. The upper abdomen is stable. IMPRESSION: Stable CT chest since the exam from 12/18/2018. The area of nodularity in the left lower lobe is stable. Continued CT chest followup is recommended with a repeat study in approximately 6 months to confirm stability. Dictated by: Dictated on workstation # [id number]
== END ==
LOC: RAD 08:23
PROVIDERS: ATTEND Nurse Practitioner Family
DX: J44.9 Chronic obstructive pulmonary disease, unspecified (principal); R91.1 Solitary pulmonary nodule; Z72.0 Tobacco use
CPT/HCPCS: 36415; 71260; 82565; 84520

== ENCOUNTER → 2020-02-25 | Outpatient (CLI) | payer MEDICARE, OTHER ==
[~2020-02-25] MED LIST changes: -HOLD METFORMIN - RECEIVED CONTRAST 20 ML VIAL IV SCH
--- NOTE | 2020-02-25 10:37 | Diagnostic Imaging Report ---
CT CHEST WO TECHNIQUE: Multiple contiguous axial images were obtained through the chest without the use of intravenous contrast. All CT scans use one or more of the following dose optimizing techniques: automated exposure control, MA and/or KvP adjustment based on a patient size and exam type, or iterative reconstruction. INDICATION: COPD with exacerbation. COMPARISON: CT chest of 04/08/2019 FINDINGS: Lungs and airway: No endoluminal nodule within the trachea. Severe centrilobular and paraseptal emphysema is unchanged, includes a large bleb/bulla in the left upper lobe. No consolidation or mass has developed. The bandlike focus of nodularity in the left lower lobe along the major fissure is unchanged with a maximal thickness of approximately 0.6 cm (image 108, series 3). On sagittal reformats, this has a bandlike configuration favoring atelectasis. Pleura: No pleural effusion or pneumothorax. Heart and mediastinum: Thyroid is normal. No supraclavicular or axillary lymphadenopathy. No mediastinal, hilar or juxtaphrenic lymphadenopathy. Heart is normal in size with trace pericardial fluid that is unchanged. Atherosclerotic aorta is unchanged and normal in caliber. Upper abdomen: Multifocal calcified splenic and hepatic granulomas are unchanged. No acute abnormality is seen within the upper abdomen. Musculoskeletal: Diffuse osseous demineralization. No focal osseous lesion of concern. IMPRESSION: 1. Severe emphysema without superimposed pneumonia or edema. 2. Left lower lobe mixed bandlike and nodular focus of atelectasis is unchanged since most recent examination but decreased when compared to 12/18/2018. 3. Consider lung cancer screening as per clinical protocol. Dictated by: Dictated on workstation # [id number]
== END ==
LOC: RAD 02-22 09:15
PROVIDERS: ATTEND Nurse Practitioner
DX: J43.9 Emphysema, unspecified (principal); J98.11 Atelectasis
CPT/HCPCS: 71250

== ENCOUNTER → 2020-03-14 | Outpatient (CLI) | payer MEDICARE ==
--- NOTE | 2020-02-25 08:40 | NUR ---
Pt came for PFT test; after speaking with pt, she informed me that she is currently taking an antibiotic and a steroid that her physician prescribed for possible respiratory infection. She stated that she had been feeling more SOA and congested before physician prescribed medication. She is still finishing up antibiotics. I let pt know that due to current COVID protocols, since she is currently being treated for a possible respiratory infection, test should be performed at later date, after she has finished antibiotics and is feeling better. Pt rescheduled to take PFT on March 14, 2020 at 0800.
[~2020-03-14] MED LIST changes: +RT-ALBUTEROL SULF 2.5 MG/3 ML PRE-MIX VIAL INH ONE
== END ==
LOC: RT 02-25 07:42
PROVIDERS: ATTEND Nurse Practitioner Family
DX: J44.9 Chronic obstructive pulmonary disease, unspecified (principal)
CPT/HCPCS: 94060; 94726; 94729

== ENCOUNTER 2020-12-26 05:34 | Outpatient (CLI) | payer MEDICARE ==
[~2020-12-26] VITALS: Ht 157.5 cm; Wt 35.0 kg
[~2020-12-26 05:34] MED LIST changes: -RT-ALBUTEROL SULF 2.5 MG/3 ML PRE-MIX VIAL INH ONE
[2020-12-26] MEDS ORDERED: PRED5TAB PO (08:25)
== END 2020-12-26 08:27 | disposition home or self-care (01) ==
LOC: PREOP 05:34
PROVIDERS: ATTEND Specialist
DX: Z01.818 Encounter for other preprocedural examination (principal)

== ENCOUNTER 2020-12-29 07:48 | Day surgery (SDC) | payer MEDICARE ==
[~2020-12-29] VITALS: Ht 157.5 cm; Wt 35.0 kg
[~2020-12-29 07:48] MED LIST changes: +PRED5TAB PO
[2020-12-29] MEDS ORDERED: TROPICAMIDE 1% OPH SOLN (MYDRIACYL) 15 ML BTL OU PRN (08:00)
[2020-12-29] MEDS ORDERED: PHENYLEPHRINE 10% OPHTH (NEO-SYN) 5 ML BTL OU PRN (08:00)
[2020-12-29] MEDS ORDERED: TETRACAINE 0.5% OPHTH SOLN 4 ML BTL (SINGLE DOSE ONLY) OU PRN (08:00)
[2020-12-29 08:12] VITALS: BP 151/84
--- NOTE | 2020-12-29 08:28 | Ophthalmologist Pre-Op Note ---
Pre-Operative Progress Note H&P Reviewed The H&P was reviewed, patient examined and no changes noted. Date H&P Reviewed: Dec 29, 2020 Time H&P Reviewed: 08:28 Pre-Op Dx Secondary Cataract, Bilateral Eyes CARLO BANSAL MD Dec 29, 2020 08:28
--- NOTE | 2020-12-29 08:37 | Ophthalmology Operative Report ---
YAG Capsulotomy PREOPERATIVE DIAGNOSIS: Secondary Cataract Bilateral POSTOPERATIVE DIAGNOSIS: Secondary Cataract Bilateral PROCEDURE: YAG Capsulotomy, Bilateral SURGEON: Beck Bansal ANESTHESIA: Topical anesthesia COMPLICATIONS: None ESTIMATED BLOOD LOSS: Minimal DESCRIPTION OF PROCEDURE: After proper informed consent was obtained, the patient's, a 80 female , received one drop of Tropicamide and one drop of Tetracaine in each eye. The patient was then placed at the YAG laser and using a power of [3.8 ] millijoules and bursts [21 ] right eye and [19 ] left eye were used to fashion a central capsulotomy. The patient tolerated the procedure well without complications. BECK BANSAL MD Dec 29, 2020 08:37
[2020-12-29 10:39] VITALS: BP 151/84
== END 2020-12-29 09:00 | disposition home or self-care (01) ==
LOC: SDC 07:48
PROVIDERS: ATTEND Specialist
DX: H26.493 Other secondary cataract, bilateral (principal); J44.9 Chronic obstructive pulmonary disease, unspecified; M19.90 Unspecified osteoarthritis, unspecified site; F41.9 Anxiety disorder, unspecified; F17.200 Nicotine dependence, unspecified, uncomplicated; Z80.1 Family history of malignant neoplasm of trachea, bronchus and lung; Z79.899 Other long term (current) drug therapy

== ENCOUNTER → 2021-06-10 | Outpatient (CLI) | payer MEDICARE ==
--- NOTE | 2021-06-10 12:19 | Diagnostic Imaging Report ---
EXAMINATION: Right ankle 3 views HISTORY: Ankle pain COMPARISON: None available. FINDINGS: Mortise is intact. Talar dome is normal. No acute fracture is seen. IMPRESSION: 1. No acute fracture is seen in the right ankle. Dictated by: Dictated on workstation # [id number]
--- NOTE | 2021-06-10 12:20 | Diagnostic Imaging Report ---
EXAMINATION: Right foot 3 views HISTORY: Foot pain COMPARISON: None available. FINDINGS: Alignment is normal. No fracture is seen. Joint spaces are normal. IMPRESSION: 1. No fracture. Dictated by: Dictated on workstation # [id number]
== END ==
LOC: RAD 11:14
PROVIDERS: ATTEND Nurse Practitioner Community Health
DX: S93.401A Sprain of unspecified ligament of right ankle, initial encounter (principal); X58.XXXA Exposure to other specified factors, initial encounter
CPT/HCPCS: 73610; 73630

== ENCOUNTER → 2022-12-02 | Outpatient (CLI) | payer MEDICARE ==
[~2022-12-02] MED LIST changes: +RT-ALBUTEROL SULF 2.5 MG/3 ML PRE-MIX VIAL INH ONE
== END ==
LOC: RT 13:42
PROVIDERS: ATTEND Nurse Practitioner Family
DX: J44.9 Chronic obstructive pulmonary disease, unspecified (principal)
CPT/HCPCS: 94060; 94726; 94729

== ENCOUNTER → 2023-05-07 | Outpatient (CLI) | payer MEDICARE ==
[~2023-05-07] MED LIST changes: -RT-ALBUTEROL SULF 2.5 MG/3 ML PRE-MIX VIAL INH ONE
--- NOTE | 2023-05-07 10:16 | Diagnostic Imaging Report ---
INDICATION: Abnormal CT chest study demonstrating a nodular density in the outer portion of the left breast. This study is performed for further evaluation. COMPARISON: Prior mammogram from 02/12/[address] recent [address] chest study from [facility] performed on 03/24/2023. FINDINGS: Scattered fibroglandular densities are identified bilaterally. There are some calcifications in the medial left breast which appear stable. There is some slight nodularity in the upper outer left breast at mid to posterior depth, indeterminate. No discrete mass is seen. The axillae are unremarkable. The right breast is unremarkable. IMPRESSION: There is some mild nodularity in the upper outer left breast which could represent fibroglandular tissue but further evaluation with ultrasound is recommended. This will be performed today. ACR BI-RADS Category 0: Incomplete. (Needs additional imaging evaluation). Result letter will be mailed to the patient. Note: At least 10% of breast cancer is not imaged by mammography. Dictated by: Dictated on workstation # [id number]
--- NOTE | 2023-05-07 11:18 | Diagnostic Imaging Report ---
INDICATION: Left breast density. COMPARISON: Correlation is made with the diagnostic mammogram from earlier this same day. FINDINGS: Sonographic interrogation of the upper outer left breast was performed. No sonographic abnormality is identified. No solid or cystic mass is detected. IMPRESSION: No sonographic abnormality is identified. The patient may return to routine annual screening mammography. ACR BI-RADS Category 1: Negative. Dictated by: Dictated on workstation # [id number]
== END ==
LOC: RAD 08:38
PROVIDERS: ATTEND Nurse Practitioner Family
DX: N63.21 Unspecified lump in the left breast, upper outer quadrant (principal)
CPT/HCPCS: 76641; 77062; 77066